=== PATIENT | male | born 1995 | race Caucasian/White ===

== ENCOUNTER 2023-02-01 13:54 | Outpatient (OUT) | payer BC, OTHER, SELFPAY ==
--- NOTE | 2023-02-01 14:27 | MR_ITS ---
The [address] [address] Patient Name: KEHINDE HART MRN: [facility]:[id number] date: 1995 Sex: M Assigned Patient Location: MRI Current Patient Location: MRI Accession/Order Number: [id number] Exam Date: 02/01/2023 15:05 Report Date: 02/01/2023 16:39 At the request of: CODY JOHNSON Procedure: MR head/brain wo/w con MR head/brain wo/w con, 02/01/2023 3:05 PM EDT INDICATION: Ataxia R27.0, Alcoholism F10.20 COMPARISON: There is no appropriate prior study for comparison. TECHNIQUE: Multiplanar, multisequential MRI images of brain were obtained without and with injection of 15 mL of Dotarem. FINDINGS: The cerebral and cerebellar sulci as well as ventricular system are mildly enlarged for age consistent with mild ex vacuo cerebral volume loss. There is no restricted diffusion. Few hyperintensities on T2 and FLAIR images in the breaux radiata and centrum semiovale with sparing of U fibers of frontal lobes are nonspecific, commonly seen in the context of migraine or microvascular ischemic changes or traumatic brain injury. There is no intracranial mass, mass effect, midline shift, intra or extra-axial fluid collection or large hemorrhage. No abnormal enhancing lesion is noted. No abnormality of mammillary body is noted. Normal flow-void in the intracranial vessels is noted. The visualized portions of orbits, mastoid air cells as well as paranasal sinuses are unremarkable. MR/MR head/brain wo/w con IMPRESSION: No acute intracranial process is noted. Mild cerebral and cerebellar atrophy for age. Electronically authenticated by: ELEANOR ROSENTHAL Date: 02/01/2023 16:39
== END 2023-02-01 13:55 | disposition home or self-care (01) ==
LOC: MRI 13:57
PROVIDERS: PCP Family Medicine; Visit Provider Psychiatry & Neurology Neurology
DX: R27.0 Ataxia, unspecified (principal); F10.20 Alcohol dependence, uncomplicated
CPT/HCPCS: 70553; A9575

== ENCOUNTER 2023-05-19 15:55 | Outpatient (OUT) | payer BC, OTHER, SELFPAY ==
[2023-05-23 11:07] LABS: Vitamin B1 (Thiamine), Blood 161.4 nmol/L (66.5-200.0)
[2023-05-25 17:07] LABS: Vitamin B6, Plasma 24.8 ug/L (3.4-65.2)
== END 2023-05-19 15:56 | disposition home or self-care (01) ==
LOC: LAB 15:57
PROVIDERS: PCP Family Medicine; Visit Provider Nurse Practitioner Family
DX: F10.20 Alcohol dependence, uncomplicated (principal)
CPT/HCPCS: 36415; 84207; 84425